=== PATIENT | female | born 1950 | race African-American/Black ===

== ENCOUNTER 2019-02-26 08:58 | Emergency (ER) | payer OTHER, MEDICAID ==
[~2019-02-26] VITALS: Ht 162.6 cm; Wt 55.0 kg
[2019-02-26 09:06] VITALS: BP 141/93
[2019-02-26] MEDS ORDERED: TETANUS, DIPHTHERIA, PERTUSSIS VAC/PF 0.5ML (>7YR OLD) IM ONE (11:45)
[2019-02-26] MEDS ORDERED: CEPHALEXIN 250MG CAPSULE PO ONE (11:45)
== END 2019-02-26 13:12 | disposition left against medical advice (07) ==
LOC: ER 09:48
DX: S91.341A Puncture wound with foreign body, right foot, initial encounter (principal); W26.8XXA Contact with other sharp object(s), not elsewhere classified, initial encounter; Y93.89 Activity, other specified; Y92.89 Other specified places as the place of occurrence of the external cause; I10 Essential (primary) hypertension
CPT/HCPCS: 99283

== ENCOUNTER 2019-02-28 11:30 | Emergency (ER) | payer OTHER, MEDICAID ==
[~2019-02-28] VITALS: Ht 162.6 cm; Wt 55.0 kg
[2019-02-28] MEDS ORDERED: TETANUS, DIPHTHERIA, PERTUSSIS VAC/PF 0.5ML (>7YR OLD) IM ONE (13:15)
[2019-02-28] MEDS ORDERED: BACITRACIN ZINC OINT UDPKT TOP ONE (14:30)
[2019-02-28] MEDS ORDERED: LIDOCAINE HCL/PF 1% 10 MG/ML 5ML VIAL IJ ONE (14:30)
[2019-02-28 16:37] VITALS: BP 145/111
== END 2019-02-28 16:39 | disposition home or self-care (01) ==
LOC: ER 11:30
DX: S91.341A Puncture wound with foreign body, right foot, initial encounter (principal); I10 Essential (primary) hypertension; I25.2 Old myocardial infarction; Z86.73 Personal history of transient ischemic attack (TIA), and cerebral infarction without residual deficits; W22.8XXA Striking against or struck by other objects, initial encounter; Y93.89 Activity, other specified; Y92.013 Bedroom of single-family (private) house as the place of occurrence of the external cause
CPT/HCPCS: 28190; 73650; 90471; 90715; 99284; J3490; 99283

== ENCOUNTER 2019-08-18 14:59 | Emergency (ER) | payer OTHER, MEDICAID ==
[~2019-08-18] VITALS: Ht 162.6 cm; Wt 52.0 kg
[~2019-08-18 14:59] MED LIST: TRIA1TAB92 MT
[2019-08-18] MEDS ORDERED: FUROSEMIDE 40MG TABLET PO ONE (22:30)
[2019-08-18 22:53] LABS: BASOPHILS % 0.9 % (0.0-2.0); EOSINOPHILS % 2.3 % (0.0-5.0); HEMATOCRIT. 35.4 % (36.0-48.0); HEMOGLOBIN. 11.4 g/dL (12.0-16.0); LYMPHOCYTES % 40.4 % (20.0-50.0); MEAN CORPUSCULAR HEMOGLOBIN 25.9 pg (28.0-32.0); MEAN CORPUSCULAR VOLUME 80.6 fL (81.0-99.0); MONOCYTES % 6.7 % (2.0-8.0); NEUTROPHILS % 49.7 % (40.0-76.0); PLATELET 132 x1000/uL (130-400); RED BLOOD CELL COUNT 4.39 mill/uL (4.2-5.4); RED CELL DISTRIBUTION WIDTH 14.7 % (11.6-14.6)
[2019-08-18 22:58] LABS: CHLORIDE 107 mEq/L (98-107)
[2019-08-19] MEDS ORDERED: ACETAMINOPHEN 325MG TABLET PO ONE (01:30)
[2019-08-19] MEDS ORDERED: KETOROLAC 30MG/ML VIAL IV ONE (01:30)
[2019-08-19 01:49] VITALS: BP 156/78
== END 2019-08-19 02:11 | disposition home or self-care (01) ==
LOC: ER 14:59
DX: R60.0 Localized edema (principal); I25.2 Old myocardial infarction; I10 Essential (primary) hypertension; Z88.8 Allergy status to other drugs, medicaments and biological substances; Z79.899 Other long term (current) drug therapy; Z86.73 Personal history of transient ischemic attack (TIA), and cerebral infarction without residual deficits; Z90.710 Acquired absence of both cervix and uterus
CPT/HCPCS: 36415; 71045; 83880; 84484; 93005; 93970; 99284

== ENCOUNTER 2019-09-26 17:58 | Emergency (ER) | payer OTHER, MEDICAID ==
[~2019-09-26] VITALS: Ht 167.6 cm; Wt 69.0 kg
[2019-09-27] MEDS ORDERED: FUROSEMIDE 20MG/2ML VIAL IVP ONE
[2019-09-27 00:09] LABS: EOSINOPHILS % 1.7 % (0.0-5.0); HEMATOCRIT. 37.7 % (36.0-48.0); HEMOGLOBIN. 12.3 g/dL (12.0-16.0); LYMPHOCYTES % 30.7 % (20.0-50.0); MEAN CORPUSCULAR HEMOGLOBIN 25.8 pg (28.0-32.0); MEAN CORPUSCULAR VOLUME 79.3 fL (81.0-99.0); MEAN PLATELET VOLUME 9.6 fl (7.4-10.4); MONOCYTES % 4.4 % (2.0-8.0); NEUTROPHILS % 62.2 % (40.0-76.0); PLATELET 198 x1000/uL (130-400); RED BLOOD CELL COUNT 4.76 mill/uL (4.2-5.4); RED CELL DISTRIBUTION WIDTH 14.6 % (11.6-14.6)
[2019-09-27 00:10] LABS: CHLORIDE 109 mEq/L (98-107)
[2019-09-27 01:14] VITALS: BP 189/81
[2019-09-27] MEDS ORDERED: ACETAMINOPHEN 325MG TABLET PO ONE (01:30)
[2019-09-27] MEDS ORDERED: ACETAMINOPHEN WITH CODEINE 300/30MG TABLET ONE (03:12)
== END 2019-09-27 01:54 | disposition home or self-care (01) ==
LOC: ER 20:30
DX: I11.0 Hypertensive heart disease with heart failure (principal); I50.9 Heart failure, unspecified; Z86.73 Personal history of transient ischemic attack (TIA), and cerebral infarction without residual deficits; I25.2 Old myocardial infarction; Z90.710 Acquired absence of both cervix and uterus; G89.29 Other chronic pain
CPT/HCPCS: 36415; 71045; 80053; 83880; 84484; 85025; 93005; 96374; 99284; J1940

== ENCOUNTER 2019-12-09 12:10 | Emergency (ER) | payer OTHER, MEDICAID ==
[~2019-12-09] VITALS: Ht 165.1 cm; Wt 60.0 kg
[2019-12-09] MEDS ORDERED: KETOROLAC 30MG/ML VIAL IM ONE (13:15)
[2019-12-09] MEDS ORDERED: TRAMADOL 50MG TABLET PO ONE (17:45)
[2019-12-09] MEDS ORDERED: NAPROXEN 250MG TABLET PO ONE (17:45)
[2019-12-10] MEDS ORDERED: TRAMADOL 50MG TABLET PO ONE (11:00)
[2019-12-10 11:39] VITALS: BP 155/97
[2019-12-10] MEDS ORDERED: NAPROXEN 250MG TABLET PO SCH (21:00)
== END 2019-12-10 12:00 | disposition home or self-care (01) ==
LOC: ER 12:10
DX: S52.025A Nondisplaced fracture of olecranon process without intraarticular extension of left ulna, initial encounter for closed fracture (principal); M25.462 Effusion, left knee; M79.661 Pain in right lower leg; W01.10XA Fall on same level from slipping, tripping and stumbling with subsequent striking against unspecified object, initial encounter; Y93.89 Activity, other specified; Y92.521 Bus station as the place of occurrence of the external cause; Z59.0 Homelessness; I25.2 Old myocardial infarction; Z86.73 Personal history of transient ischemic attack (TIA), and cerebral infarction without residual deficits; Z90.710 Acquired absence of both cervix and uterus; I10 Essential (primary) hypertension
CPT/HCPCS: 73080; 73562; 73590; 96372; 99284; J1885; L1830

== ENCOUNTER 2019-12-12 17:29 | Inpatient (IN) | payer OTHER, MEDICAID ==
[~2019-12-12] VITALS: Ht 167.6 cm; Wt 62.3 kg
[2019-12-12 19:34] LABS: CHLORIDE 96 mEq/L (98-107)
[2019-12-12 19:40] LABS: HEMATOCRIT. 41.6 % (36.0-48.0); HEMOGLOBIN. 13.7 g/dL (12.0-16.0); MEAN CORPUSCULAR HEMOGLOBIN 25.7 pg (28.0-32.0); MEAN CORPUSCULAR VOLUME 77.9 fL (81.0-99.0); MEAN PLATELET VOLUME 10.3 fl (7.4-10.4); PLATELET 157 x1000/uL (130-400); RED BLOOD CELL COUNT 5.34 mill/uL (4.2-5.4); RED CELL DISTRIBUTION WIDTH 15.6 % (11.6-14.6)
[2019-12-12] MEDS ORDERED: TRAMADOL 50MG TABLET PO ONE (20:30)
[2019-12-12] MEDS ORDERED: SODIUM CHLORIDE 0.9% 500 ML IV ONE (20:30)
[2019-12-12 20:38] LABS: PLATELET ESTIMATE NORMAL
[2019-12-12] MEDS ORDERED: SODIUM CHLORIDE 0.9% 1,000 ML IV ONE (22:15)
[2019-12-12] MEDS ORDERED: DEXT 5%/0.45% NACL 1000ML 1,000 ML IV ONE (22:30)
[2019-12-12] MEDS ORDERED: DEXTROSE 50% WATER 50ML SYRINGE IV ONE ×2 (22:30→22:33)
[2019-12-12 23:00] LABS: INR 1.1; PARTIAL THROMBOPLASTIN TIME 33.2 sec (23.4-31.0); PROTHROMBIN TIME 11.4 sec (9.6-11.0)
[2019-12-12] MEDS ORDERED: ENOXAPARIN 80MG/0.8ML SYR SUBCUT ONE (23:30)
[2019-12-13 00:59] VITALS: BP 91/60
[2019-12-13 02:00] VITALS: BP 99/68
[2019-12-13] MEDS ORDERED: MORPHINE SULFATE 4 MG/ML CPJ (NOT FOR IM USE) IV PRN (02:30)
[2019-12-13] MEDS ORDERED: DEXT 5%/0.45% NACL 1000ML 1,000 ML IV SCH (03:00)
[2019-12-13] MEDS ORDERED: APIXABAN 5 MG TABLET PO SCH ×2 (03:15→17:00)
[2019-12-13 04:00] VITALS: BP 101/68
[2019-12-13 06:00] VITALS: BP 95/63
[2019-12-13] MEDS ORDERED: PANTOPRAZOLE 40MG DR TABLET PO SCH (06:50)
[2019-12-13 08:03] VITALS: BP 109/30
[2019-12-13 08:54] LABS: BG CARBOXYHEMOGLOBIN 0.9 % (0.5-1.5); BG DEOXYHEMOGLOBIN 1.1 % (0.0-5.0); BG FRACTION INSPIRED OXYGEN 28; BG HCO3 ACT 12.7 mmol/L (22.0-26.0); BG METHEMOGLOBIN 0.3 % (0.0-1.5); BG OXYGEN SATURATION 98.9 % (92.0-98.5); BG OXYHEMOGLOBIN 97.7 % (94.0-97.0); BG PO2 153.2 mmHg (75.0-100.0); BG SAMPLE SITE RIGHT RADIAL; BG TOTAL HEMOGLOBIN 14.5 g/dL (12.0-18.0); BG VENT MODE NASAL CANNULA
[2019-12-13] MEDS ORDERED: CLONIDINE 0.1MG TABLET PO PRN (10:30)
[2019-12-13] MEDS ORDERED: MORPHINE SULFATE 2 MG/ML CPJ (NOT FOR IM USE) IV PRN (10:30)
[2019-12-13 11:04] VITALS: BP 120/76
[2019-12-13 11:22] LABS: BG BASE EXCESS -27.2 mmol/L (-2.0-2.0); BG CARBOXYHEMOGLOBIN 0.3 % (0.5-1.5); BG DEOXYHEMOGLOBIN 1.8 % (0.0-5.0); BG FRACTION INSPIRED OXYGEN 100; BG HCO3 ACT 6.6 mmol/L (22.0-26.0); BG METHEMOGLOBIN 0.4 % (0.0-1.5); BG OXYGEN SATURATION 98.2 % (92.0-98.5); BG OXYHEMOGLOBIN 97.5 % (94.0-97.0); BG PCO2 40.3 mmHg (35.0-45.0); BG PH 6.835 (7.350-7.450); BG PO2 174.9 mmHg (75.0-100.0); BG SAMPLE SITE RIGHT RADIAL; BG TOTAL HEMOGLOBIN 14.3 g/dL (12.0-18.0); BG VENT MODE MASK - NRB
[2019-12-13] MEDS ORDERED: NOREPINEPHRINE 8 MG in DEXT 5% WATER 242 ML IV PRN (11:30)
[2019-12-13] MEDS ORDERED: SODIUM BICARBONATE 8.4% 1 MEQ/ML 50ML SYR IV NR (11:30)
[2019-12-13] MEDS ORDERED: NOREPINEPHRINE 4MG/250ML PMX 250 ML IV SCH ×2 (11:45)
[2019-12-13] MEDS ORDERED: PANTOPRAZOLE SODIUM 40 MG/VIAL IV SCH (12:00)
[2019-12-13] MEDS ORDERED: SODIUM BICARBONATE 100 MEQ in DEXT 5%/0.9% NACL 900 ML IV SCH (12:30)
[2019-12-13] MEDS ORDERED: VANCOMYCIN 1 G PREMIX 200 ML IV SCH (14:00)
[2019-12-13] MEDS ORDERED: PIPERACILLIN/TAZOBACTAM 2.25 G in DEXTROSE 5% WATER 50 ML IV SCH (14:00)
[2019-12-14] MEDS ORDERED: PANTOPRAZOLE SODIUM 40 MG/VIAL IV SCH (09:00)
== END 2019-12-13 11:52 | disposition expired | DRG 871 ==
LOC: ER 17:29 → EDBEDREQ 22:22 → EDBEDREQTM 22:22 → 3WST 22:31 → EDBEDREQ 22:35 → EDBEDREQTM 22:35 → EDBEDREQSVC 22:35 → ENRESERV 22:47 → CANBEDREQ 12-13 09:04
PROVIDERS: ADMIT Internal Medicine; ATTEND Internal Medicine
PROC: 5A12012 Performance of Cardiac Output, Single, Manual (ICD-10-PCS; principal; 2019-12-12)
PROC: 06HY33Z Insertion of Infusion Device into Lower Vein, Percutaneous Approach (ICD-10-PCS; 2019-12-12)
DX: A41.9 Sepsis, unspecified organism (principal); I26.99 Other pulmonary embolism without acute cor pulmonale; E43 Unspecified severe protein-calorie malnutrition; E87.2 Acidosis; N17.9 Acute kidney failure, unspecified; I47.2 Ventricular tachycardia; I49.01 Ventricular fibrillation; F17.200 Nicotine dependence, unspecified, uncomplicated; F41.9 Anxiety disorder, unspecified; I11.9 Hypertensive heart disease without heart failure; I25.10 Atherosclerotic heart disease of native coronary artery without angina pectoris; I46.9 Cardiac arrest, cause unspecified; Z59.0 Homelessness; Z86.718 Personal history of other venous thrombosis and embolism; Z86.73 Personal history of transient ischemic attack (TIA), and cerebral infarction without residual deficits; I25.2 Old myocardial infarction; Z90.710 Acquired absence of both cervix and uterus; Z91.19 Patient's noncompliance with other medical treatment and regimen; Z88.8 Allergy status to other drugs, medicaments and biological substances
CPT/HCPCS: 36415; 36600; 71045; 73562; 80053; 82375; 82805; 82962; 83880; 84484; 85025; 93005; 93971; 96365; 99291; J1650; J2270; J2543; J3370; J3490; J7040; J7042; J7060